=== PATIENT | female | born 1940 | race Caucasian/White ===

== ENCOUNTER → 2024-06-21 11:32 | Outpatient (REF) | payer MEDICARE, SELFPAY ==
[2024-06-21 12:12] LABS: Hematocrit 40.8 % (37.0-47.0); Hemoglobin 13.6 g/dL (12.0-16.0); Mean Corp Hgb Conc. 33.3 g/dL (33.0-37.0); Mean Corpuscular Hgb 30.2 pg (27.0-31.0); Mean Corpuscular Volume 90.5 fL (81.0-99.0); Mean Platelet Volume 11.1 fL (7.4-10.4); Platelet Count 247 10^3/uL (130-400); Red Blood Cell Count 4.51 10^6/uL (4.20-5.40); Red Cell Dist. Width 12.8 % (11.5-14.5); White Blood Cell Count 7.4 10^3/uL (4.8-10.8)
[2024-06-21 12:30] LABS: ALT (SGPT) 18 U/L (0-35); AST (SGOT) 20 U/L (14-36); Albumin 4.7 g/dl (3.5-5.0); Alkaline Phosphatase 91 U/L (38-126); Blood Urea Nitrogen 23 mg/dl (7-17); Calcium 9.4 mg/dl (8.4-10.2); Carbon Dioxide 23 mmol/L (22-30); Chloride 101 mmol/L (98-107); Glucose 229 mg/dl (70-99); HDL Cholesterol 70 mg/dl; LDL Cholesterol, Calculated 46 mg/dl; Potassium 4.7 mmol/L (3.5-5.1); Sodium 135 mmol/L (135-145); Total Bilirubin 0.8 mg/dl (0.2-1.3); Total Cholesterol 130 mg/dl (50-199); Total Protein 6.9 g/dl (6.3-8.2); Triglyceride 72 mg/dl (10-149); Very Low Density Lipoprotein 14 mg/dl (0-30); eGFR > 60.00
[2024-06-21 12:40] LABS: Glycohemoglobin (HgbA1c) 10.8 % (4.0-5.6)
[2024-06-21 12:49] LABS: TSH Reflex To Free T4 2.74 uIU/ml (0.47-4.68)
[2024-06-21 14:29] LABS: % Basophils 0.4 % (0-2); % Eosinophils 2.4 % (0-6); % Immature Granulocytes 0.3 % (0-0.5); % Lymphocytes 51.3 % (20.5-51.1); % Monocytes 6.1 % (1.7-9.3); % Neutrophils 39.5 % (42.2-75.2); Absolute Eosinophils 0.2 10^3/uL (0-0.7); Absolute Lymphocytes 3.8 10^3/uL (1.2-3.4); Absolute Monocytes 0.5 10^3/uL (0.1-0.6); Absolute Neutrophils 2.9 10^3/uL (1.4-6.5); Nucleated Red Blood Cells % 0 %
== END ==
LOC: OLABWIL 11:32
PROVIDERS: ATTENDING PHYSICIAN Nurse Practitioner Adult Health
DX: Z76.89 Persons encountering health services in other specified circumstances (principal); Z13.29 Encounter for screening for other suspected endocrine disorder; E78.00 Pure hypercholesterolemia, unspecified; E11.69 Type 2 diabetes mellitus with other specified complication
CPT/HCPCS: 36415; 80053; 80061; 83036; 84443; 85025

== ENCOUNTER → 2024-08-02 12:26 | Outpatient (REF) | payer MEDICARE, SELFPAY ==
[2024-08-02 13:38] LABS: ALT (SGPT) 18 U/L (0-35); AST (SGOT) 21 U/L (14-36); Albumin 4.7 g/dl (3.5-5.0); Alkaline Phosphatase 94 U/L (38-126); Blood Urea Nitrogen 29 mg/dl (7-17); Calcium 10.1 mg/dl (8.4-10.2); Carbon Dioxide 23 mmol/L (22-30); Chloride 105 mmol/L (98-107); Glucose 212 mg/dl (70-99); Potassium 4.5 mmol/L (3.5-5.1); Sodium 138 mmol/L (135-145); Total Bilirubin 0.7 mg/dl (0.2-1.3); Total Protein 6.9 g/dl (6.3-8.2); eGFR > 60.00
[2024-08-02 14:47] LABS: Glycohemoglobin (HgbA1c) 10.2 % (4.0-5.6)
== END ==
LOC: OLABWIL 12:26
PROVIDERS: ATTENDING PHYSICIAN Nurse Practitioner Adult Health
DX: E11.69 Type 2 diabetes mellitus with other specified complication (principal); Z79.4 Long term (current) use of insulin; I10 Essential (primary) hypertension
CPT/HCPCS: 36415; 80053; 83036

== ENCOUNTER → 2024-09-25 13:05 | Outpatient (REF) | payer MEDICARE, SELFPAY ==
[2024-09-25 13:47] LABS: ALT (SGPT) 19 U/L (0-35); AST (SGOT) 23 U/L (14-36); Albumin 4.6 g/dl (3.5-5.0); Alkaline Phosphatase 83 U/L (38-126); Blood Urea Nitrogen 29 mg/dl (7-17); Calcium 9.4 mg/dl (8.4-10.2); Carbon Dioxide 20 mmol/L (22-30); Chloride 106 mmol/L (98-107); Glucose 191 mg/dl (70-99); Potassium 4.6 mmol/L (3.5-5.1); Sodium 136 mmol/L (135-145); Total Bilirubin 0.7 mg/dl (0.2-1.3); eGFR > 60.00
[2024-09-25 14:13] LABS: Glycohemoglobin (HgbA1c) 9.5 % (4.0-5.6)
== END ==
LOC: OLABWIL 13:05
PROVIDERS: ATTENDING PHYSICIAN Nurse Practitioner Adult Health
DX: E78.00 Pure hypercholesterolemia, unspecified (principal); E11.69 Type 2 diabetes mellitus with other specified complication
CPT/HCPCS: 36415; 80053; 83036

== ENCOUNTER → 2024-12-27 07:30 | Outpatient (REF) | payer MEDICARE, SELFPAY ==
[2024-12-27 20:04] LABS: Microalb - Urine Creatinine 34.900 mg/dl
[2024-12-27 20:09] LABS: Microalbumin, Random Urine 1.0 mg/dl (0.6-1.7)
== END ==
LOC: OLABWIL 07:30
PROVIDERS: ATTENDING PHYSICIAN Nurse Practitioner Adult Health
DX: E11.69 Type 2 diabetes mellitus with other specified complication (principal)
CPT/HCPCS: 82043; 82570

== ENCOUNTER → 2025-01-22 11:08 | Outpatient (REF) | payer MEDICARE, SELFPAY ==
[2025-01-22 11:54] LABS: Hematocrit 45.0 % (37.0-47.0); Hemoglobin 14.5 g/dL (12.0-16.0); Mean Corp Hgb Conc. 32.2 g/dL (33.0-37.0); Mean Corpuscular Volume 89.5 fL (81.0-99.0); Nucleated Red Blood Cells % 0 %; Platelet Count 303 10^3/uL (130-400); Red Cell Dist. Width 13.7 % (11.5-14.5)
[2025-01-22 12:13] LABS: ALT (SGPT) 22 U/L (0-35); AST (SGOT) 23 U/L (14-36); Albumin 4.7 g/dl (3.5-5.0); Alkaline Phosphatase 93 U/L (38-126); Blood Urea Nitrogen 26 mg/dl (7-17); Calcium 10.1 mg/dl (8.4-10.2); Carbon Dioxide 25 mmol/L (22-30); Chloride 102 mmol/L (98-107); Glucose 190 mg/dl (70-99); Potassium 4.9 mmol/L (3.5-5.1); Sodium 136 mmol/L (135-145); Total Protein 7.5 g/dl (6.3-8.2); eGFR > 60.00
[2025-01-22 12:38] LABS: Glycohemoglobin (HgbA1c) 10.9 % (4.0-5.6)
== END ==
LOC: OLABWIL 11:08
PROVIDERS: ATTENDING PHYSICIAN Nurse Practitioner Adult Health
DX: Z13.29 Encounter for screening for other suspected endocrine disorder (principal); E11.69 Type 2 diabetes mellitus with other specified complication; Z79.4 Long term (current) use of insulin; I10 Essential (primary) hypertension
CPT/HCPCS: 36415; 80053; 83036; 84443; 85025

== ENCOUNTER → 2025-02-05 11:25 | Outpatient (REF) | payer MEDICARE, SELFPAY | LOC: RAD 11:25 | PROVIDERS: ATTENDING PHYSICIAN Registered Nurse | DX: R05.1 Acute cough (principal) | CPT/HCPCS: 71046 ==

== ENCOUNTER → 2025-04-25 09:50 | Outpatient (REF) | payer MEDICARE, SELFPAY ==
[2025-04-25 10:35] LABS: Hematocrit 43.7 % (37.0-47.0); Hemoglobin 14.1 g/dL (12.0-16.0); Mean Corp Hgb Conc. 32.3 g/dL (33.0-37.0); Mean Corpuscular Volume 90.1 fL (81.0-99.0); Nucleated Red Blood Cells % 0 %; Platelet Count 277 10^3/uL (130-400); Red Cell Dist. Width 14.0 % (11.5-14.5)
[2025-04-25 11:13] LABS: ALT (SGPT) 20 U/L (0-35); AST (SGOT) 23 U/L (14-36); Albumin 4.7 g/dl (3.5-5.0); Alkaline Phosphatase 76 U/L (38-126); Calcium 9.3 mg/dl (8.4-10.2); Carbon Dioxide 24 mmol/L (22-30); Chloride 100 mmol/L (98-107); Glucose 135 mg/dl (70-99); Potassium 4.1 mmol/L (3.5-5.1); Sodium 133 mmol/L (135-145); Total Protein 7.3 g/dl (6.3-8.2); eGFR > 60.00
[2025-04-25 11:22] LABS: Blood Urea Nitrogen 15 mg/dl (7-17)
[2025-04-25 12:36] LABS: Glycohemoglobin (HgbA1c) 9.4 % (4.0-5.9)
== END ==
LOC: OLABWIL 09:50
PROVIDERS: ATTENDING PHYSICIAN Nurse Practitioner Adult Health
DX: E11.69 Type 2 diabetes mellitus with other specified complication (principal); Z79.4 Long term (current) use of insulin; I10 Essential (primary) hypertension
CPT/HCPCS: 36415; 80053; 83036; 85025